=== PATIENT | female | born 1990 | race Caucasian/White ===

== ENCOUNTER 2018-10-06 23:53 | Inpatient (IN) ==
[2018-10-07] MEDS ORDERED: ONDANSETRON HCL/PF 2 MG/ML VIAL IV PRN ×2 (00:07→16:43)
[2018-10-07] MEDS ORDERED: DEXTROSE 5%-LACTATED RINGERS 1,000 ML IV PRN (00:07)
[2018-10-07] MEDS ORDERED: RINGER'S SOLUTION,LACTATED 1,000 ML IV ONE (00:07)
[2018-10-07] MEDS ORDERED: MISOPROSTOL 100 MCG TABLET VG PRN (00:07)
[2018-10-07] MEDS ORDERED: OXYTOCIN/DEXTROSE 5%-WATER 30 UNITS/500 ML BAG IV ONE ×2 (00:07→20:51)
[2018-10-07 00:39] LABS: Hematocrit 33.8 % (37.0-47.0); Hemoglobin 11.5 gm/dL (12.5-16.0); Mean Cell Volume 92.6 fl (78-100); Mean Corpuscular Hemoglobin 31.5 pg (27-31); Mean Platelet Volume 11.5 fl (8-12.5); Platelet Count 196 K/mm3 (150-450); Red Blood Count 3.65 M/mm3 (4.2-5.4); Red Cell Distribution Width 13.3 % (11.5-14.0); White Blood Count 18.6 K/mm3 (4.0-10.5)
[2018-10-07 00:59] LABS: Albumin * 2.7 gm/dl (3.4-5.0); Anion Gap 12.8 mmol/L (6.8-13.8); BUN/Creatinine Ratio 11.5 (9.0-21.6); Bilirubin, Total 0.1 mg/dL (0.0-1.1); Ca. Corrected For Albumin 9.5 mg/dL (8.4-10.2); Calcium * 8.8 mg/dL (7.9-10.9); Carbon Dioxide 22.8 mmol/L (24-32.6); Potassium 3.6 mmol/L (3.4-4.6); Total Protein 6.5 gm/dL (6.2-8.2)
[2018-10-07 01:03] LABS: Total Cells Counted 100
[2018-10-07 01:15] LABS: Immature Granulocyte 1 (0-1); Lymphocyte 11 % (20-51); Monocyte 7 % (0-9); Neutrophil 81 % (42-75); Neutrophil # 15.1 K/mm3 (1.3-6.0); Platelet Estimate Normal (NORMAL); RBC Morphology Normal (NORMAL)
[2018-10-07 01:33] LABS: Cocaine Ur Negative (NEGATIVE); Urine Barbiturate Negative (NEGATIVE); Urine Benzodiazepines Negative (NEGATIVE); Urine Opiates Negative (NEGATIVE); Urine PCP Negative (NEGATIVE); Urine THC Negative (NEGATIVE)
--- NOTE | 2018-10-07 10:37 | HP ---
Chief Complaint - Chief Complaint Date of Service: 10/07/18 Time of Service: 10:37 Chief Complaint: Induction of labor for IHCP History of Present Illness: 28 yo at 36 3/7 wks admitted for induction of labor due to intrahepatic cholestasis of with worsening bile acid salts, despite treatment with ursodiol. This complicated by anemia, PUPPS, and IHCP. Rh negative Rubella immune GBS negative Medical History (Last Reviewed 10/07/18 @ 11:28 by Tyler Severino DO) Intrahepatic cholestasis of (Acute) Onset Date: ~08/2018 Anemia Onset Date: 07/17/18 w/ Rh negative, maternal Onset Date: ~2017 Scoliosis Onset Date: Unknown Appendicitis Onset Date: ~12/10/13 acute with necrosis and perforation History of scarlet fever Onset Date: ~1999 History of wisdom tooth extraction Onset Date: ~2007 Tear meniscus knee Onset Date: ~2008 bilateral, 2010 History of Henoch-Schonlein purpura Onset Date: ~1999 Surgical History: Surgical History (Last Reviewed 10/07/18 @ 11:28 by Tyler Severino DO) History of appendectomy Onset Date: ~12/10/13 Laparoscopic-Dr. Tong History of arthroscopic knee surgery Onset Date: Unknown 2008-repair of left meniscus tear, 2010-repair of right meniscus tear History of excision of hemangioma Onset Date: ~1993 Venous hemangioma removed from lip-age 4 History of tympanoplasty Onset Date: ~1996 Family History: Family History (Last Reviewed 10/07/18 @ 11:28 by Tyler Severino DO) Father Rheumatoid arthritis Mother Alive and well Grandmother Cancer Breast CA Social History: Preferred Language Serbian Smoking Status Never smoker (Last Updated 10/05/18 @ 10:04 by Tyler Severino DO) No Social History Section defined Review Of Systems (GEN) - Review of Systems Generalized/Overall Review: Present: No Symptoms Reported EENTM: Present: No Symptoms Reported Respiratory: Present: No Symptoms Reported Cardiac: Present: No Symptoms Reported Abdominal: Present: No Symptoms Reported Genitourinary: Present: No Symptoms Reported Musculoskeletal: Present: No Symptoms Reported Neurological: Present: No Symptoms Reported Skin: Present: No Symptoms Reported Endocrine: Present: No Symptoms Reported Allergies/Adverse Reactions: Allergies Allergy/AdvReac Type Severity Reaction Status Date / Time No Known Drug Allergies Allergy Verified 10/07/18 01:16 house dust mite AdvReac rash, Verified 10/07/18 01:16 sneezing, hives mold AdvReac rash, Verified 10/07/18 01:16 sneezing, hives Home Medications: HOME MEDICATIONS albuterol sulfate HFA 90 mcg/actuation aerosol inhaler 1 inh IH .Q4-6H PRN g 05/05/18 [Last Taken Unknown] vitamin,calcium,rzeughfq-dfdh-peqbs acid tablet 1 tab PO DAILY 05/05/18 [Last Taken Unknown] hydroxyzine HCl 25 mg tablet 25 mg PO Q4H PRN #60 tab 07/17/18 [Last Taken Unknown] cetirizine 10 mg capsule 10 mg PO DAILY 09/07/18 [Last Taken Unknown] ursodiol 300 mg capsule 300 mg PO TID #90 cap 09/25/18 [Last Taken Unknown] Exam - Exam Vital Signs: Vital Signs - Last Taken Temp 36.6 C 10/07/18 01:22 Pulse 91 10/07/18 01:22 Resp 16 10/07/18 01:22 BP 128/74 10/07/18 01:22 Pulse Ox 98 10/07/18 01:22 Constitutional: Present: Alert, Oriented x3, Cooperative, No distress ENT Exam: Present: hearing grossly normal Respiratory: Present: lungs clear, no respiratory distress Cardiovascular/Chest: Present: regular rate, rhythm Abdomen: Present: soft, nontender, no rebound tenderness, other - gravid /Rectal: Present: Other - cervix 1/25/-2 upon admission Extremity: Present: no pedal edema, no calf tenderness Skin Exam: Present: normal color, warm/dry, no cyanosis Neurologic: Present: alert, normal mood/affect, oriented x 3 Appearance: Present: appropriate appearance, appropriate insight Eye contact: Present: cooperative, good eye contact Thoughts: Present: normal thought pattern Diagnostic Studies: Abnormal Lab Results 10/07/18 10/07/18 Range/Units 00:35 00:35 WBC 18.6 H (4.0-10.5) K/mm3 RBC 3.65 L (4.2-5.4) M/mm3 Hgb 11.5 L (12.5-16.0) gm/dL Hct 33.8 L (37.0-47.0) % MCH 31.5 H (27-31) pg Neutrophils % (Manual) 81 H (42-75) % Lymphocytes % (Manual) 11 L (20-51) % Neutrophils # (Manual) 15.1 H (1.3-6.0) K/mm3 Monocytes # (Manual) 1.3 H (0.0-1.0) k/mm3 Carbon Dioxide 22.8 L (24-32.6) mmol/L Random Glucose 165 H (70-110) mg/dL Albumin 2.7 L (3.4-5.0) gm/dl Laboratory Results WBC 18.6 K/mm3 (4.0-10.5) H 10/07/18 00:35 RBC 3.65 M/mm3 (4.2-5.4) L 10/07/18 00:35 Hgb 11.5 gm/dL (12.5-16.0) L 10/07/18 00:35 Hct 33.8 % (37.0-47.0) L 10/07/18 00:35 MCV 92.6 fl (78-100) 10/07/18 00:35 MCH 31.5 pg (27-31) H 10/07/18 00:35 MCHC 34.0 g/dl (32-36) 10/07/18 00:35 RDW 13.3 % (11.5-14.0) 10/07/18 00:35 Plt Count 196 K/mm3 (150-450) 10/07/18 00:35 MPV 11.5 fl (8-12.5) 10/07/18 00:35 Neutrophils % (Manual) 81 % (42-75) H 10/07/18 00:35 Lymphocytes % (Manual) 11 % (20-51) L 10/07/18 00:35 Monocytes % (Manual) 7 % (0-9) 10/07/18 00:35 Immature Granulocytes 1 (0-1) 10/07/18 00:35 Neutrophils # (Manual) 15.1 K/mm3 (1.3-6.0) H 18 00:35 Lymphocytes # (Manual) 2.0 k/mm3 (1.5-3.5) 10/07/18 00:35 Monocytes # (Manual) 1.3 k/mm3 (0.0-1.0) H 10/07/18 00:35 Platelet Estimate Normal (NORMAL) 10/07/18 00:35 RBC Morphology Normal (NORMAL) 10/07/18 00:35 Sodium 137 mmol/L (132-142) 10/07/18 00:35 Plasma Sodium 138 mmol/L (130-142) 10/07/18 00:35 Potassium 3.6 mmol/L (3.4-4.6) 10/07/18 00:35 Chloride 105 mmol/L (97-106) 10/07/18 00:35 Carbon Dioxide 22.8 mmol/L (24-32.6) L 10/07/18 00:35 Anion Gap 12.8 mmol/L (6.8-13.8) 10/07/18 00:35 BUN 9 mg/dL (3-23) 10/07/18 00:35 Creatinine 0.78 mg/dL (0.4-1.4) 10/07/18 00:35 Est GFR (Non-Af Amer) 95 mL/min (60-130) D 10/07/18 00:35 BUN/Creatinine Ratio 11.5 (9.0-21.6) 10/07/18 00:35 Random Glucose 165 mg/dL (70-110) H 10/07/18 00:35 Calcium 8.8 mg/dL (7.9-10.9) 10/07/18 00:35 Calcium Adj for Albumin 9.5 mg/dL (8.4-10.2) 10/07/18 00:35 Total Bilirubin 0.1 mg/dL (0.0-1.1) 10/07/18 00:35 AST 19 U/L (0-48) 10/07/18 00:35 ALT 23 U/L (19-67) 10/07/18 00:35 Alkaline Phosphatase 158 U/L (50-170) 10/07/18 00:35 Total Protein 6.5 gm/dL (6.2-8.2) 10/07/18 00:35 Albumin 2.7 gm/dl (3.4-5.0) L 10/07/18 00:35 Urine Opiates Screen Negative (NEGATIVE) 10/07/18 01:15 Barbiturate Screen Negative (NEGATIVE) 10/07/18 01:15 Ur Phencyclidine Scrn Negative (NEGATIVE) 10/07/18 01:15 Urine Amphetamine Negative (NEGATIVE) 10/07/18 01:15 U Benzodiazepines Scrn Negative (NEGATIVE) 10/07/18 01:15 Urine Cocaine Screen Negative (NEGATIVE) 10/07/18 01:15 Urine Marijuana (THC) Negative (NEGATIVE) 10/07/18 01:15 Assessment/Plan - Assessment/Plan (1) Encounter for induction of labor Assessment: Cytotec induction of labor. Epidural and pitocin PRN. Problem: Acute (2) Intrahepatic cholestasis of Problem: Acute
--- NOTE | 2018-10-07 10:39 | PN ---
Progess Note - Interim Date: 10/07/18 Time: 10:37 - seen at 0905 Narrative: 10/07/18 10:37 Patient rating her contractions as mild Vital signs stable. Status post one dose of Cytotec at around 1 AM FHT: 145 baseline, reassuring Contractions q 24 min Cervix: 360/-1 Impression: Intrauterine at 36-3/7 weeks induction of labor for intrahepatic cholestasis of Plan: Continue present plan
[2018-10-07] MEDS ORDERED: URSODIOL 300 MG CAPSULE PO SCH (13:00)
[2018-10-07] MEDS: URSODIOL 300 MG CAPSULE PO SCH ×2 (13:19→18:30)
--- NOTE | 2018-10-07 16:10 | PN ---
Progess Note - Interim Date: 10/07/18 Time: 16:03 Narrative: 10/07/18 16:03 Pt still rating contractions mild Vitals stable. Pitocin at 8 mu/min. FHT 140, reassuring Contractions irregular q1-4 min Cvx 3-4/60/-2, AROM - clear fluid IMP/Plan: 36 3/7 wk IUP induction for IHCP. Increase pitocin if contractions don't increase intensity after AROM.
[2018-10-07] MEDS ORDERED: NALOXONE HCL 1 MG/1 ML SYRG IV PRN (16:43)
[2018-10-07] MEDS ORDERED: BUPIVACAINE HCL/0.9 % NACL/PF 250 ML EP PRN (16:43)
[2018-10-07] MEDS ORDERED: fentaNYL CITRATE/PF 50 MCG/ML AMPUL IT SCH (16:45)
--- NOTE | 2018-10-07 18:13 | ANES ---
Anesthesia Pre Procedure Eval Vitals/Labs: Last Vital Signs Temp 36.6 C 10/07/18 01:22 Pulse 91 10/07/18 01:22 Resp 16 10/07/18 01:22 BP 128/74 10/07/18 01:22 Pulse Ox 98 10/07/18 01:22 HOME MEDICATIONS albuterol sulfate HFA 90 mcg/actuation aerosol inhaler 1 inh IH .Q4-6H PRN g 05/05/18 [Last Taken Unknown] vitamin,calcium,udkhirvz-udvx-uicbv acid tablet 1 tab PO DAILY 05/05/18 [Last Taken Unknown] hydroxyzine HCl 25 mg tablet 25 mg PO Q4H PRN #60 tab 07/17/18 [Last Taken Un known] cetirizine 10 mg capsule 10 mg PO DAILY 09/07/18 [Last Taken Unknown] ursodiol 300 mg capsule 300 mg PO TID #90 cap 09/25/18 [Last Taken Unknown] Allergies/Adverse Reactions: Allergies Allergy/AdvReac Type Severity Reaction Status Date / Time No Known Drug Allergies Allergy Verified 10/07/18 01:16 house dust mite AdvReac rash, Verified 10/07/18 01:16 sneezing, hives mold AdvReac rash, Verified 10/07/18 01:16 sneezing, hives - Planned Procedure Planned Procedure: IHCP W/LAB RESULTS GOING UP EVEN THO ON MEDICATION Medical History (Last Reviewed 10/07/18 @ 18:13 by Mark Marcial CRNA) Intrahepatic cholestasis of (Acute) Onset Date: ~08/2018 Anemia Onset Date: 07/17/18 w/ Rh negative, maternal Onset Date: ~2017 Scoliosis Onset Date: Unknown Appendicitis Onset Date: ~12/10/13 acute with necrosis and perforation History of scarlet fever Onset Date: ~1999 History of wisdom tooth extraction Onset Date: ~2007 Tear meniscus knee Onset Date: ~2008 bilateral, 2010 History of Henoch-Schonlein purpura Onset Date: ~1999 Surgical History (Last Reviewed 10/07/18 @ 18:13 by Mark Marcial CRNA) History of appendectomy Onset Date: ~12/10/13 Laparoscopic-Dr. Tong History of arthroscopic knee surgery Onset Date: Unknown 2008-repair of left meniscus tear, 2010-repair of right meniscus tear History of excision of hemangioma Onset Date: ~1993 Venous hemangioma removed from lip-age 4 History of tympanoplasty Onset Date: ~1996 Family History (Last Reviewed 10/07/18 @ 18:13 by Mark Marcial CRNA) Father Rheumatoid arthritis Mother Alive and well Grandmother Cancer Breast CA - Family Anesthesia History Family History:: no untoward family reactions to anesthesia - Airway/Neck/Teeth Within Normal Limits:: Yes Teeth Condition: intact Neck Exam: full range of motion Mallampatti Score: 1 Thyromental (T-M) distance: > 6 cm Mandibulo Hyoid distance: > 3 cm - Respiratory Respiratory Physical: lungs clear Smoking Status: Never smoker Sleep Apnea currently treated: No Sleep Apnea by current assessment: No - Cardiovascular Tolerate Activity: Good Heart Sounds: S1 & S2, Regular - Anesthesia Assessment and Plan ASA Class: PS, II, E Anesthesia Type Plan: Epidural Planned difficult intubation/equipment available: No
--- NOTE | 2018-10-07 18:14 | ANES ---
Post Anesthesia Discharge - Transfer of Care Transfer of Care handoff given to nurse: Yes - Anesthesia Post Op Note Anesthesia Post Op Note: Care transferred to OB RN
--- NOTE | 2018-10-07 18:14 | ANES ---
Post Anesthesia Assessment - Vital Signs Vitals: Last Vital Signs Temp 36.6 C 10/07/18 01:22 Pulse 91 10/07/18 01:22 Resp 16 10/07/18 01:22 BP 128/74 10/07/18 01:22 Pulse Ox 98 10/07/18 01:22 Airway Patency: Normal - Mental Status Level Of Consciousness: Awake - Pain Level Pain Score: 2 - N/V Assessment Nausea/Vomiting Presence: None Dehydration:: No
--- NOTE | 2018-10-07 18:17 | ANES ---
Anesthesia Procedure Note Procedure Note: ANESTHESIA PROCEDURE NOTE Date of Procedure: [] 10/07/2018 Time of procedure:[]. 1800 Performed by: Gaston Marcial CRNA Rescue Instructor: None. Preprocedure diagnosis: Active labor. Post procedure diagnosis: Same. Procedure: Insertion of labor epidural. Indications: The patient is a [28] -year-old [Prima para] female in active labor requesting labor epidural for pain management. Findings: See below. Details of the procedure: The patient was placed in a sitting position. Back was prepped with DuraPrep. Patient was then draped in a sterile fashion. Lidocaine 1% was infiltrated to the skin and subcutaneous tissues at the level of the L3 4 interspace. The epidural space was identified using a 18-gauge Tuohy needle with [id number] technique. 20 mcg fentanyl was given intrathecally using a 27 ga. spinal needle. Epidural catheter was inserted without difficulty. Negative test dose was elicited using 5 mL of 1.5% preservative-free lidocaine plus epinephrine 1 200,000. The epidural catheter was then taped and secured in place. EBL: Minimal. Fluids: N/A. Specimen: N/A. Post procedure condition: The patient tolerated the procedure well. No complications were noted. Thank you for this consultation. Marsh CRNA
[2018-10-07] MEDS ORDERED: BENZOCAINE/MENTHOL 81 SPRAY CAN TP PRN (20:51)
[2018-10-07] MEDS ORDERED: BISACODYL 10 MG SUPP.RECT RC PRN (20:51)
[2018-10-07] MEDS ORDERED: HYDROCORTISONE 30 APPL TUBE TP PRN (20:51)
[2018-10-07] MEDS ORDERED: oxyCODONE HCL/ACETAMINOPHEN 1 TAB TABLET PO PRN (20:51)
[2018-10-07] MEDS ORDERED: SENNOSIDES 8.6 MG TABLET PO PRN (20:51)
[2018-10-07] MEDS ORDERED: GLYCERIN/WITCH HAZEL LEAF 40 APPL BOX TP PRN (20:51)
--- NOTE | 2018-10-07 21:02 | PN ---
Progess Note - Interim Date: 10/07/18 Time: 21:02 History for MU Definition: * The number of deliveries resulting in a live the patient experienced prior to current hospitalization * The previous delivery of live twins or any live multiple gestation is considered one live event. *If primagravida or nulliparous is documented select zero for the number of previous live births. Live Events: 0
--- NOTE | 2018-10-07 21:02 | OR ---
Operative Report - Dictated Report Narrative: Delivery of viable male at 2027 on 10/07/2018 with Apgars 9 and 9, weighing 3074 g in DIANE position complicated by mild shoulder dystocia 2nd stage of labor: 47 minutes Head/body interval: 26 seconds Anesthesia: epidural Estimated weight: 2800 g Diabetes: No Attendants at : [OB: Tyler Severino, Ped: not present, Nurses: Marta Portillo and Josselin Quesada, Others: none Position of head at delivery: DIANE Right shoulder anterior Maneuvers used: Kevin yes, Suprapubic pressure yes, Wood's screw yes, Delivery of posterior shoulder yes, Arm sweep no, Episiotomy no, Other: None Description: Anterior shoulder almost cleared with maternal pushing but required a counterclockwise rotation with deliver of the posterior arm to deliver infant Infant moving all extremities at yes, Injuries noted: none Cord gases not obtained Mother's condition: 2 cm second degree vaginal laceration repaired with 3-0 Vicryl Rapide EBL: Less than 50 mL Mother informed of dystocia and potential sequelae. Recommendations for future pregnancies: Caution delivering a baby larger than 7-1/2 pounds
[2018-10-07] MEDS: DOCUSATE SODIUM 100 MG CAPSULE PO SCH (22:55)
[2018-10-07] MEDS: oxyCODONE HCL/ACETAMINOPHEN 1 TAB TABLET PO PRN (23:30)
[2018-10-08] MEDS: oxyCODONE HCL/ACETAMINOPHEN 1 TAB TABLET PO PRN ×6 (02:56→23:41)
[2018-10-08] MEDS: IBUPROFEN 800 MG TABLET PO PRN ×3 (02:56→19:10)
[2018-10-08] MEDS: DOCUSATE SODIUM 100 MG CAPSULE PO SCH ×2 (07:28→13:11)
[2018-10-08] MEDS ORDERED: RHO(D) IMMUNE GLOBULIN 1,500 UNIT SYRINGE IM ONE (09:00)
--- NOTE | 2018-10-08 09:10 | PN ---
Subjective - Date and Time Seen Date: 10/08/18 Time: 09:09 Objective - Vitals Vitals: Last Vital Signs Temp 36.2 C 10/08/18 06:44 Pulse 64 10/08/18 06:44 Resp 16 10/08/18 06:44 BP 125/81 10/08/18 06:44 Pulse Ox 98 10/08/18 03:44 Patient denies complaints. Attempting to breast-feed Lochia wnl Abdomen - soft, nontender Uterus - firm, at umbilicus - 1 No calf tenderness Impression: day #1 - s/p spontaneous vaginal delivery. IHCP-resolved Plan: Continue routine care Cauti Physician Documentation - Urinary Catheter Management Urethral (Moon) Date of Insertion: 10/07/18 Time of Insertion: 18:30 Assessment/Plan - Problems/Diagnosis (1) Encounter for induction of labor Problem: Acute (2) Intrahepatic cholestasis of Problem: Acute
[2018-10-09] MEDS: DOCUSATE SODIUM 100 MG CAPSULE PO SCH ×2 (01:29→21:41)
[2018-10-09] MEDS: IBUPROFEN 800 MG TABLET PO PRN ×3 (02:18→17:19)
[2018-10-09] MEDS: oxyCODONE HCL/ACETAMINOPHEN 1 TAB TABLET PO PRN ×2 (04:39→21:41)
--- NOTE | 2018-10-09 05:38 | PN ---
Subjective - Date and Time Seen Date: 10/09/18 Time: 05:35 Objective - Vitals Vitals: Last Vital Signs Temp 36.4 C 10/08/18 12:00 Pulse 71 10/09/18 03:05 Resp 18 10/09/18 03:05 BP 121/63 10/09/18 03:05 Pulse Ox 97 10/08/18 19:35 Patient denies complaints. Breast-feeding. A little emotional today due to baby's difficulty maintaining blood sugars Lochia wnl Abdomen - soft, nontender Uterus - firm, at umbilicus - 2 No calf tenderness Impression: day #2 - s/p spontaneous vaginal delivery. Plan: Routine discharge instructions. If baby has to stay, mom will Board for Baby. Cauti Physician Documentation - Urinary Catheter Management Urethral (Moon) Date of Insertion: 10/07/18 Time of Insertion: 18:30 Assessment/Plan - Problems/Diagnosis (1) Encounter for induction of labor Problem: Acute (2) Intrahepatic cholestasis of Problem: Acute
[2018-10-09 19:29] VITALS: BP 128/73
== END 2018-10-09 23:27 | disposition home or self-care (01) | DRG 805 ==
LOC: OB 23:53
PROVIDERS: ADMIT Obstetrics & Gynecology; ATTEND Obstetrics & Gynecology
CPT/HCPCS: 36415; 59025; 80053; 80307; 85007; 85025; 85460; G0479; J2790

== ENCOUNTER 2020-10-24 15:04 | Inpatient (IN) ==
[2020-10-27] MEDS ORDERED: RINGER'S SOLUTION,LACTATED 1,000 ML IV ONE (00:12)
[2020-10-27] MEDS ORDERED: OXYTOCIN/0.9 % SODIUM CHLORIDE 30 UNITS/500 ML BAG IV ONE ×2 (00:12→19:16)
[2020-10-27] MEDS ORDERED: ONDANSETRON 4 MG TAB.RAPDIS PO PRN (00:12)
[2020-10-27] MEDS ORDERED: DEXTROSE 5%-LACTATED RINGERS 1,000 ML IV PRN (00:12)
[2020-10-27 00:26] LABS: Hematocrit 39.7 % (37.0-47.0); Hemoglobin 13.1 gm/dL (12.5-16.0); Mean Cell Volume 91.9 fl (78-100); Mean Corpuscular Hemoglobin 30.3 pg (27-31); Mean Platelet Volume 10.8 fl (8-12.5); Platelet Count 218 K/mm3 (150-450); Red Blood Count 4.32 M/mm3 (4.2-5.4); White Blood Count 13.9 K/mm3 (4.0-10.5)
[2020-10-27 00:47] LABS: Albumin * 2.9 gm/dl (3.4-5.0); Anion Gap 12.8 mmol/L (6.8-13.8); BUN/Creatinine Ratio 12.9 (9.0-21.6); Bilirubin, Total 0.2 mg/dL (0.0-1.1); Ca. Corrected For Albumin 9.9 mg/dL (8.4-10.2); Carbon Dioxide 26.9 mmol/L (24-32.6); Potassium 3.7 mmol/L (3.4-4.6)
[2020-10-27 00:53] LABS: Calcium * 9.3 mg/dL (7.9-10.9)
[2020-10-27 00:58] LABS: Total Cells Counted 100
[2020-10-27] MEDS: MISOPROSTOL 100 MCG TABLET VG PRN ×2 (00:59→05:34)
[2020-10-27 01:38] LABS: Band 4 % (0-2.0); Eosinophil 4 % (0-3); Immature Granulocyte 1 (0-1); Lymphocyte 22 % (20-51); Monocyte 7 % (0-9); Neutrophil 62 % (42-75); Neutrophil # 8.6 K/mm3 (1.3-6.0)
--- NOTE | 2020-10-27 09:09 | HP ---
Chief Complaint - Chief Complaint Date of Service: 10/27/20 Time of Service: 08:46 Chief Complaint: Induction of labor for IHCP History of Present Illness: 30 yo at 36w2d presents to L&D for induction ot labor due to IHCP.diagnosed at 32wks. This complicated by IHCP, h/o prior IHCP and h/o shoulder dystocia. Rh positive Rubella immune GBS negative Medical History (Last Reviewed 10/27/20 @ 09:00 by Tyler Severino DO) Anemia affecting (Acute) Onset Date: 09/02/20 iron BID History of shoulder dystocia in prior (Resolved) wt. 3074g, no sequela Intrahepatic cholestasis of (Acute) Onset Date: ~08/2018 NST reactive Anemia Onset Date: 07/17/18 w/ Hemorrhoids Onset Date: Unknown Rh negative, maternal Onset Date: ~2017 Scoliosis Onset Date: Unknown Appendicitis Onset Date: ~12/10/13 acute with necrosis and perforation History of delivery Onset Date: 10/07/18 Induction @ 36 wks d/t IHCP History of scarlet fever Onset Date: ~1999 Shoulder dystocia during labor and delivery, delivered Onset Date: ~10/07/18 Kevin, suprapubic pressure, baron screw maneuver, delivery posterior shoulder-baby's weight 3074gms Tear meniscus knee Onset Date: ~2008 bilateral, 2010 History of Henoch-Schonlein purpura Onset Date: ~1999 Intrahepatic cholestasis of , antepartum (Inactive) Surgical History: Surgical History (Last Reviewed 10/27/20 @ 09:00 by Tyler Severino DO) History of appendectomy Onset Date: ~12/10/13 Laparoscopic-Dr. Tong History of arthroscopic knee surgery Onset Date: Unknown 2008-repair of left meniscus tear, 2010-repair of right meniscus tear History of excision of hemangioma Onset Date: ~1993 Venous hemangioma removed from lip-age 4 History of tympanoplasty Onset Date: ~1996 History of wisdom tooth extraction Onset Date: ~2007 Family History: Family History (Last Reviewed 10/27/20 @ 09:00 by Tyler Severino DO) Father Rheumatoid arthritis Mother Alive and well Grandmother Cancer Breast CA Social History: (Last Reviewed 10/27/20 @ 09:00 by Tyler Severino DO) Social History: adopted: No intermediate: No Marital status: lives independently: Yes household members: spouse number of children: 1 current occupational status: other current occupation: Homemaker current occupational exposures/hazards: No Highest level of school completed/degree received: Bachelor's degree Sexually Active: Yes Service: No Tobacco: Smoking Status: Never smoker Alcohol: alcohol intake: current alcohol intake frequency: a few times a month details: No alcohol since +UPT Substance Use: substance use type: does not use Dietary Habits: caffeine: Yes caffeine comment: 1/day Type: coffee Exercise: frequency: other Sanjana/Alevism: agree to transfusion: Yes Review Of Systems (GEN) - Review of Systems Generalized/Overall Review: Present: No Symptoms Reported EENTM: Present: No Symptoms Reported Respiratory: Present: No Symptoms Reported Cardiac: Present: No Symptoms Reported Abdominal: Present: No Symptoms Reported Genitourinary: Present: No Symptoms Reported Musculoskeletal: Present: No Symptoms Reported Neurological: Present: No Symptoms Reported Skin: Present: No Symptoms Reported Endocrine: Present: No Symptoms Reported Allergies/Adverse Reactions: Allergies Allergy/AdvReac Type Severity Reaction Status Date / Time No Known Drug Allergies Allergy Verified 10/27/20 00:11 house dust mite AdvReac rash, Verified 10/27/20 00:11 sneezing, hives mold AdvReac rash, Verified 10/27/20 00:11 sneezing, hives Home Medications: HOME MEDICATIONS albuterol sulfate 90 mcg/actuation aerosol inhaler 1 inh IH .Q4-6H PRN #8.5 g 01/11/20 [Last Taken Unknown] prenat.vits,glenny,rpa-ujfz-dmana 1 tab PO DAILY 04/14/20 [Last Taken Unknown] ursodiol 300 mg capsule 300 mg PO TID #90 cap 07/21/20 [Last Taken Unknown] ferrous sulfate 325 mg (65 mg iron) tablet 325 mg PO BID #30 tab 09/03/20 [Last Taken Unknown] Exam - Exam Vital Signs: Vital Signs - Last Taken Temp 36.5 C 10/27/20 01:49 Pulse 82 10/27/20 01:49 Resp 16 10/27/20 01:49 BP 132/81 10/27/20 01:49 Pulse Ox 97 10/27/20 01:49 Constitutional: Present: Alert, Oriented x3, Cooperative ENT Exam: Present: hearing grossly normal Neck: Present: non-tender. Absent: thyromegaly Breasts: Present: Exam deferred Respiratory: Present: lungs clear, no respiratory distress Cardiovascular/Chest: Present: normal peripheral pulses, regular rate, rhythm, no edema Abdomen: Present: soft, nontender, no rebound tenderness, other - gravid /Rectal: Present: Other - Cervix - 1-2/50/-4 Extremity: Present: no pedal edema, no calf tenderness Skin Exam: Present: normal color, warm/dry, no cyanosis Lymphatic: Present: no adenopathy Neurologic: Present: alert, normal mood/affect Appearance: Present: appropriate appearance, appropriate insight Eye contact: Present: cooperative, good eye contact Thoughts: Present: normal thought pattern, normal mood /affect Diagnostic Studies: Abnormal Lab Results 10/27/20 10/27/20 Range/Units 00:20 00:20 WBC 13.9 H (4.0-10.5) K/mm3 RDW 16.0 H (11.5-14.0) % Band Neuts % (Manual) 4 H (0-2.0) % Eosinophils % (Manual) 4 H (0-3) % Neutrophils # (Manual) 8.6 H (1.3-6.0) K/mm3 Albumin 2.9 L (3.4-5.0) gm/dl Laboratory Results WBC 13.9 K/mm3 (4.0-10.5) H 10/27/20 00:20 RBC 4.32 M/mm3 (4.2-5.4) 10/27/20 00:20 Hgb 13.1 gm/dL (12.5-16.0) 10/27/20 00:20 Hct 39.7 % (37.0-47.0) 10/27/20 00:20 MCV 91.9 fl (78-100) 10/27/20 00:20 MCH 30.3 pg (27-31) 10/27/20 00:20 MCHC 33.0 g/dl (32-36) 10/27/20 00:20 RDW 16.0 % (11.5-14.0) H 10/27/20 00:20 Plt Count 218 K/mm3 (150-450) 10/27/20 00:20 MPV 10.8 fl (8-12.5) 10/27/20 00:20 Neutrophils % (Manual) 62 % (42-75) 10/27/20 00:20 Band Neuts % (Manual) 4 % (0-2.0) H 10/27/20 00:20 Lymphocytes % (Manual) 22 % (20-51) 10/27/20 00:20 Monocytes % (Manual) 7 % (0-9) 10/27/20 00:20 Eosinophils % (Manual) 4 % (0-3) H 10/27/20 00:20 Immature Granulocytes 1 (0-1) 10/27/20 00:20 Neutrophils # (Manual) 8.6 K/mm3 (1.3-6.0) H 10/27/20 00:20 Lymphocytes # (Manual) 3.1 k/mm3 (1.5-3.5) 10/27/20 00:20 Monocytes # (Manual) 1.0 k/mm3 (0.0-1.0) 10/27/20 00:20 Eosinophils # (Manual) 0.6 k/mm3 (0.0-0.7) 10/27/20 00:20 Sodium 139 mmol/L (132-142) 10/27/20 00:20 Plasma Sodium 139 mmol/L (130-142) 10/27/20 00:20 Potassium 3.7 mmol/L (3.4-4.6) 10/27/20 00:20 Chloride 103 mmol/L (97-106) 10/27/20 00:20 Carbon Dioxide 26.9 mmol/L (24-32.6) 10/27/20 00:20 Anion Gap 12.8 mmol/L (6.8-13.8) 10/27/20 00:20 BUN 9 mg/dL (3-23) 10/27/20 00:20 Creatinine 0.70 mg/dL (0.4-1.4) 10/27/20 00:20 Est GFR (Non-Af Amer) 106 mL/min (60-130) D 10/27/20 00:20 BUN/Creatinine Ratio 12.9 (9.0-21.6) 10/27/20 00:20 Random Glucose 81 mg/dL (70-110) 10/27/20 00:20 Calcium 9.3 mg/dL (7.9-10.9) 10/27/20 00:20 Calcium Adj for Albumin 9.9 mg/dL (8.4-10.2) 10/27/20 00:20 Total Bilirubin 0.2 mg/dL (0.0-1.1) 10/27/20 00:20 AST 24 U/L (0-48) 10/27/20 00:20 ALT 22 U/L (19-67) 10/27/20 00:20 Alkaline Phosphatase 169 U/L (50-170) 10/27/20 00:20 Total Protein 7.0 gm/dL (6.2-8.2) 10/27/20 00:20 Albumin 2.9 gm/dl (3.4-5.0) L 10/27/20 00:20 Assessment/Plan - Assessment/Plan (1) Intrahepatic cholestasis of Assessment: R/b/a to induction of labor vs expectant management discussed with patient. Continue with Cytotec induction of labor. Epidural and piitocin PRN. Problem: Acute (2) History of shoulder dystocia in prior Problem: Resolved
[2020-10-27] MEDS ORDERED: NALOXONE HCL 1 MG/1 ML SYRG IV PRN (11:28)
[2020-10-27] MEDS ORDERED: ONDANSETRON HCL/PF 2 MG/ML VIAL IV PRN (11:28)
[2020-10-27] MEDS ORDERED: BUPIVACAINE HCL/0.9 % NACL/PF 250 ML EP PRN (11:28)
[2020-10-27] MEDS ORDERED: BUPIVACAINE HCL/PF 30 ML VIAL EP SCH (11:30)
--- NOTE | 2020-10-27 12:26 | ANES ---
Anesthesia Pre Procedure Eval Vitals/Labs: Last Vital Signs Temp 36.5 C 10/27/20 01:49 Pulse 82 10/27/20 01:49 Resp 16 10/27/20 01:49 BP 132/81 10/27/20 01:49 Pulse Ox 97 10/27/20 01:49 HOME MEDICATIONS albuterol sulfate 90 mcg/actuation aerosol inhaler 1 inh IH .Q4-6H PRN #8.5 g 01/11/20 [Last Taken Unknown] prenat.vits,glenny,dib-uffy-dljqe 1 tab PO DAILY 04/14/20 [Last Taken Unknown] ursodiol 300 mg capsule 300 mg PO TID #90 cap 07/21/20 [Last Taken Unknown] ferrous sulfate 325 mg (65 mg iron) tablet 325 mg PO BID #30 tab 09/03/20 [Last Taken Unknown] Allergies/Adverse Reactions: Allergies Allergy/AdvReac Type Severity Reaction Status Date / Time No Known Drug Allergies Allergy Verified 10/27/20 00:11 house dust mite AdvReac rash, Verified 10/27/20 00:11 sneezing, hives mold AdvReac rash, Verified 10/27/20 00:11 sneezing, hives - Planned Procedure Planned Procedure: Labor Epidural Medication List Reviewed:: Yes Allergies Verified: Yes Medical History (Last Reviewed 10/27/20 @ 12:26 by Jrodan De Anda CRNA) Anemia affecting (Acute) Onset Date: 09/02/20 iron BID History of shoulder dystocia in prior (Resolved) wt. 3074g, no sequela Intrahepatic cholestasis of (Acute) Onset Date: ~08/2018 NST reactive Anemia Onset Date: 07/17/18 w/ Hemorrhoids Onset Date: Unknown Rh negative, maternal Onset Date: ~2017 Scoliosis Onset Date: Unknown Appendicitis Onset Date: ~12/10/13 acute with necrosis and perforation History of delivery Onset Date: 10/07/18 Induction @ 36 wks d/t IHCP History of scarlet fever Onset Date: ~1999 Shoulder dystocia during labor and delivery, delivered Onset Date: ~10/07/18 Kevin, suprapubic pressure, baron screw maneuver, delivery posterior shoulder-baby's weight 3074gms Tear meniscus knee Onset Date: ~2008 bilateral, 2010 History of Henoch-Schonlein purpura Onset Date: ~1999 Intrahepatic cholestasis of , antepartum (Inactive) Surgical History (Last Reviewed 10/27/20 @ 09:00 by Tyler Severino DO) History of appendectomy Onset Date: ~12/10/13 Laparoscopic-Dr. Tong History of arthroscopic knee surgery Onset Date: Unknown 2008-repair of left meniscus tear, 2010-repair of right meniscus tear History of excision of hemangioma Onset Date: ~1993 Venous hemangioma removed from lip-age 4 History of tympanoplasty Onset Date: ~1996 History of wisdom tooth extraction Onset Date: ~2007 Family History (Last Reviewed 10/27/20 @ 09:00 by Tyler Severino DO) Father Rheumatoid arthritis Mother Alive and well Grandmother Cancer Breast CA - Anesthesia Assessment and Plan ASA Class: PS, II Anesthesia Type Plan: Epidural
--- NOTE | 2020-10-27 12:44 | ANES ---
Anesthesia Procedure Note Procedure Note: ANESTHESIA PROCEDURE NOTE Date of Procedure: 10/27/2020 Time of procedure: 1230. Performed by: Jordan De Anda CRNA Sports Management Professor: None. Preprocedure diagnosis: Active labor. Post procedure diagnosis: Same. Procedure: Insertion of labor epidural. Indications: The patient is a 30-year-old female in active labor requesting labor epidural for pain management. Findings: See below. Details of the procedure: The patient was placed in a sitting position. DuraPrep as well as Betadine swabs X3 was applied to the patient's back. Patient was then draped in a sterile fashion. Lidocaine 1% was infiltrated to the skin and subcutaneous tissues at the level of the L3-4 interspace. The epidural space was identified using a 18-gauge Tuohy needle with [id number] technique. Epidural catheter was inserted to a depth of 10 centimeters at skin. Negative test dose was elicited using 3 mL of 1.5% preservative-free lidocaine plus epinephrine 1 200,000. The epidural catheter was then taped and secured in place. A loading dose of 8 mL of 0.25% preservative-free bupivacaine was administered to the epidural catheter after negative aspiration for blood and CSF. EBL: Minimal. Fluids: N/A. Specimen: N/A. Post procedure condition: The patient tolerated the procedure well. No complications were noted. Thank you for this consultation. Jordan De Anda CRNA
--- NOTE | 2020-10-27 12:44 | ANES ---
Post Anesthesia Assessment - Vital Signs Vitals: Last Vital Signs Temp 36.5 C 10/27/20 01:49 Pulse 82 10/27/20 01:49 Resp 16 10/27/20 01:49 BP 132/81 10/27/20 01:49 Pulse Ox 97 10/27/20 01:49 Airway Patency: Normal - Mental Status Level Of Consciousness: Awake - N/V Assessment Nausea/Vomiting Presence: None Dehydration:: No
--- NOTE | 2020-10-27 17:40 | PN ---
Progess Note - Interim Date: 10/27/20 Time: 17:36 Narrative: 10/27/20 17:36 Patient becoming more uncomfortable with increased vaginal pressure. Vital signs stable. Pitocin was at 6 mu/min but decreased to 4 milliunits/min. FHT: 160 baseline, reassuring contractions q 1-2 min Cervix: 4/70/-2, AROM-clear. Patient had large amount of bloody show - chucks weighed 71g. Impression: Intrauterine at 36-2/7 weeks induction of labor for IHCP. Beginning active labor. Plan: Anesthesia consulted for redose of epidural. Pitocin turned down to 2 milliunits/min. Continue close monitoring. Type and screen obtained.
[2020-10-27] MEDS ORDERED: BISACODYL 10 MG SUPP.RECT RC PRN (19:16)
[2020-10-27] MEDS ORDERED: GLYCERIN/WITCH HAZEL LEAF 40 APPL BOX TP PRN (19:16)
[2020-10-27] MEDS ORDERED: BENZOCAINE/MENTHOL 81 SPRAY CAN TP PRN (19:16)
[2020-10-27] MEDS ORDERED: SENNOSIDES 8.6 MG TABLET PO PRN (19:16)
[2020-10-27] MEDS ORDERED: IBUPROFEN 800 MG TABLET PO PRN ×2 (19:16)
[2020-10-27] MEDS ORDERED: HYDROCORTISONE 30 APPL TUBE TP PRN (19:16)
[2020-10-27] MEDS ORDERED: ALBUTEROL SULFATE 200 PUFF INHALER IH PRN (19:17)
--- NOTE | 2020-10-27 19:27 | OR ---
Operative Report - Dictated Report Narrative: Spontaneous vaginal delivery of viable male at 1838 on 10/27/2020 with Apgars 6 and 7, weighing 3060 g in DIANE position with right hand at face. Cord clamping delayed approximately 1 minute Placenta delivered complete, intact, with three vessel cord Estimated blood loss: Less than 50 ml Anesthesia: Epidural Lacerations: First-degree vaginal laceration with no repair needed
[2020-10-27] MEDS: DOCUSATE SODIUM 100 MG CAPSULE PO SCH (20:36)
[2020-10-27] MEDS: oxyCODONE HCL/ACETAMINOPHEN 1 TAB TABLET PO PRN (22:07)
[2020-10-27] MEDS: FERROUS SULFATE 325 MG TABLET PO SCH (22:07)
[2020-10-28] MEDS: oxyCODONE HCL/ACETAMINOPHEN 1 TAB TABLET PO PRN ×2 (03:23→06:27)
[2020-10-28] MEDS: DOCUSATE SODIUM 100 MG CAPSULE PO SCH (06:26)
[2020-10-28] MEDS: FERROUS SULFATE 325 MG TABLET PO SCH (06:30)
[2020-10-28 07:00] VITALS: BP 125/86
[2020-10-28] MEDS ORDERED: RHO(D) IMMUNE GLOBULIN 1,500 UNIT SYRINGE IM ONE (07:00)
--- NOTE | 2020-10-28 08:15 | PN ---
Subjective - Date and Time Seen Date: 10/28/20 Time: 08:14 Objective - Vitals Vitals: Last Vital Signs Temp 36.1 C 10/28/20 07:00 Pulse 87 10/28/20 07:00 Resp 18 10/28/20 07:00 BP 125/86 10/28/20 07:00 Pulse Ox 99 10/28/20 07:00 Patient denies complaints. Pruritus resolved. Lochia wnl abdomen - soft, nontender Uterus -firm, at umbilicus - 1 No calf tenderness Impression: day #1 - s/p spontaneous vaginal delivery. Baby transferred to [facility] for respiratory distress. Patient desires early discharge. Plan: Continue routine care. Routine discharge instructions Cauti Physician Documentation - Urinary Catheter Management Urethral (Moon) Date of Insertion: 10/27/20 Time of Insertion: 13:43 Assessment/Plan - Problems/Diagnosis (1) Intrahepatic cholestasis of Problem: Resolved (2) History of shoulder dystocia in prior Problem: Resolved
--- NOTE | 2020-10-28 08:17 | DS ---
OB Discharge Summary (1) Intrahepatic cholestasis of Status: Resolved (2) History of shoulder dystocia in prior Status: Resolved Delivery Date: 10/27/20 Delivery Time: 18:38 :: 2 Para:: 2 Gestational weeks:: 36 Gestational days:: 2 Intrapartum Procedures: Spontaneous Vaginal Delivery, Anesthesia - Epidural /OP Complications: No Complications Discharge Diagnosis: Delivery, Rubella Immune - Discharge Information Discharge Location: Home Disposition: Home self-care Condition: Good Discharge Diet: General/regular food Additional Patient Instructions (free text): Joanie you Have an appointment with Dr. Severino Thank you for choosing [facility] for your delivery of your sweet boy. Please never hesitate to call if you have any questions or concerns. [facility] [phone] [facility] [phone] Complete Home Medications List: Complete Home Medication List: albuterol sulfate 90 mcg/actuation aerosol inhaler 1 inh IH .Q4-6H PRN #8.5 g 01/11/20 prenat.vits,glenny,iot-liag-tlnas 1 tab PO DAILY 04/14/20 ursodiol 300 mg capsule 300 mg PO TID #90 cap 07/21/20 ferrous sulfate 325 mg (65 mg iron) tablet 325 mg PO BID #30 tab 09/03/20 - Plan Discharge to:: Home Follow up in office in:: 3-4 weeks - [place] Information Weight (Grams): 3,060 Sex: Male Score 1 min: 6 Score 5 min: 7 Infant Complications: Other - Respiratory distress Other Complications: infant delivered with respiratory distress, transferred to [facility]
[2020-10-28] MEDS ORDERED: PRENATAL VITS96/IRON FUM/FOLIC 1 TAB TABLET PO SCH (09:00)
== END 2020-10-28 08:30 | disposition home or self-care (01) | DRG 805 ==
LOC: OB 10-27 00:05
PROVIDERS: ADMIT Obstetrics & Gynecology; ATTEND Obstetrics & Gynecology